=== PATIENT | male | born 1985 | race Caucasian/White ===

== ENCOUNTER 2018-09-02 09:43 | Emergency (ER) | payer SELFPAY ==
--- NOTE | 2018-09-02 10:27 | ER ---
Nurse's Notes [facility] Name: Brian Schumacher Age: 32 yrs Sex: Male : 1985 Arrival Date: 09/02/2018 Time: 09:46 Bed 8 Private MD: Diagnosis: Cellulitis of face Presentation: 09/02 09:56 Presenting complaint: Patient states: last night i started noticing the R side of my hj face is swollen this morning, it was worse, swelling around my eye, down to the L cheek area; pain is 2/10; denies tooth problems, denies skin breakdown on the area; denies F/C; denies trauma to the area; took Benadryl last night and this AM;. Transition of care: patient was not received from another setting of care. Onset of symptoms was September 02, 2018. Risk Assessment: Do you want to hurt yourself or someone else? Patient reports no desire to harm self or others. Initial Sepsis Screen: Does the patient meet any 2 criteria? No. Patient's initial sepsis screen is negative. Does the patient have a suspected source of infection? Yes:. Care prior to arrival:. 09:56 Method Of Arrival: Ambulatory 09:56 Acuity: MARTINA 4 hj Triage Assessment: 10:00 General: Appears in no apparent distress. uncomfortable, Behavior is calm, cooperative, hj appropriate for age. Pain: Complains of pain in right eye and right cheek. Historical: - Allergies: 09:59 No Known Allergies; hj - Home Meds: 09:59 None [Active]; hj - PMHx: 09:59 None; hj - PSHx: 09:59 None; hj - Immunization history:: Adult Immunizations not up to date. - Social history:: Smoking status: Patient uses tobacco products, Patient/guardian denies using alcohol, Patient/guardian denies using street drugs, The patient lives with family. - Ebola Screening: : Patient negative for fever greater than or equal to 101.5 degrees Fahrenheit, and additional compatible Ebola Virus Disease symptoms Patient denies exposure to infectious person Patient denies travel to an Ebola-affected area in the 21 days before illness onset. - Family history:: not pertinent. Screenin:00 Abuse screen: Denies threats or abuse. Denies injuries from another. Nutritional hj screening: No deficits noted. Tuberculosis screening: No symptoms or risk factors identified. Fall Risk None identified. Assessment: 10:01 General: Appears in no apparent distress. uncomfortable, Behavior is calm, cooperative, hj appropriate for age. Pain: Complains of pain in face and right cheek and right eye Pain currently is 2 out of 10 on a pain scale. Neuro: Level of Consciousness is awake, alert, obeys commands, Oriented to person, place, time, situation, Appropriate for age. Cardiovascular: Capillary refill < 3 seconds Patient's skin is warm and dry. Respiratory: Airway is patent Respiratory effort is even, unlabored, Respiratory pattern is regular, symmetrical. GI: No signs and/or symptoms were reported involving the gastrointestinal system. : No signs and/or symptoms were reported regarding the genitourinary system. EENT: Reports pain in face and right cheek. Derm: No signs and/or symptoms reported regarding the dermatologic system. Musculoskeletal: No signs and/or symptoms reported regarding the musculoskeletal system. 10:22 Reassessment: for D/C;. hj Vital Signs: 09:59 BP 144 / 104; Pulse 74; Resp 18; Temp 97.7(TE); Pulse Ox 97% on R/A; Weight 113.4 kg; hj Height 6 ft. 1 in. (185.42 cm); Pain 2/10; 10:22 BP 142 / 98; Pulse 75; Resp 18; Pulse Ox 100% on R/A; hj 10:34 BP 136 / 94; Pulse 75; Resp 18; Pulse Ox 100% on R/A; hj 09:59 Body Mass Index 32.98 (113.40 kg, 185.42 cm) ED Course: 09:46 Patient arrived in ED. rg4 09:56 Bharat Figueroa, EDITA is Primary Nurse. hj 09:58 Triage completed. hj 10:01 Arm band placed on right wrist. hj 10:01 Patient has correct armband on for positive identification. Bed in low position. Call hj light in reach. Side rails up X 1. 10:05 Titus Nina MD is Attending Physician. ma2 10:34 No provider procedures requiring assistance completed. Patient did not have IV access hj during this emergency room visit. Administered Medications: 10:28 Drug: Augmentin 875 mg Route: PO; hj 10:33 Follow up: Response: No adverse reaction hj Outcome: 10:27 Discharge ordered by . maxx 10:35 Discharged to home ambulatory. hj 10:35 Condition: stable 10:35 Discharge instructions given to patient, Instructed on discharge instructions, follow up and referral plans. medication usage, Demonstrated understanding of instructions, follow-up care, medications, Prescriptions given X 1. 10:35 Patient left the ED. Signatures: Bharat Figueroa RN RN hj Garcia, Rubi rg4 Titus Nina MD MD ma2
--- NOTE | 2018-09-02 10:28 | EDPHYS ---
Physician Documentation [facility] Name: Brian Schumacher Age: 32 yrs Sex: Male : 1985 Arrival Date: 09/02/2018 Time: 09:46 Bed 8 Private MD: ED Physician Titus Nina HPI: 09/02 10:24 This 32 yrs old Male presents to ER via Ambulatory with complaints of Facial ma2 Swelling. 10:24 The patient or guardian reports swelling, tenderness. The complaints affect the right ma2 cheek. Onset: The symptoms/episode began/occurred gradually, 1 day(s) ago. Associated signs and symptoms: The patient has no apparent associated signs or symptoms. Severity of symptoms: At their worst the symptoms were very mild. The patient has not experienced similar symptoms in the past. Historical: - Allergies: :59 No Known Allergies; hj - Home Meds: :59 None [Active]; hj - PMHx: :59 None; hj - PSHx: 09:59 None; hj - Immunization history:: Adult Immunizations not up to date. - Social history:: Smoking status: Patient uses tobacco products, Patient/guardian denies using alcohol, Patient/guardian denies using street drugs, The patient lives with family. - Ebola Screening: : Patient negative for fever greater than or equal to 101.5 degrees Fahrenheit, and additional compatible Ebola Virus Disease symptoms Patient denies exposure to infectious person Patient denies travel to an Ebola-affected area in the 21 days before illness onset. - Family history:: not pertinent. ROS: 10:24 Constitutional: Negative for fever, chills, and weight loss. ma2 10:24 ENT: Positive for area of redness on face, Negative for foreign body sensation, pulling at ears, Teeth pain tinnitus. 10:24 All other systems are negative. Exam: 10:24 Constitutional: This is a well developed, well nourished patient who is awake, alert, ma2 and in no acute distress. Eyes: Pupils equal round and reactive to light, extra-ocular motions intact. Lids and lashes normal. Conjunctiva and sclera are non-icteric and not injected. Cornea within normal limits. Periorbital areas with no swelling, redness, or edema. ENT: Nares patent. No nasal discharge, no septal abnormalities noted. Tympanic membranes are normal and external auditory canals are clear. Oropharynx with no redness, swelling, or masses, exudates, or evidence of obstruction, uvula midline. Mucous membranes moist. Neck: Trachea midline, no thyromegaly or masses palpated, and no cervical lymphadenopathy. Supple, full range of motion without nuchal rigidity, or vertebral point tenderness. No Meningismus. Chest/axilla: Normal chest wall appearance and motion. Nontender with no deformity. No lesions are appreciated. Cardiovascular: Regular rate and rhythm with a normal S1 and S2. No gallops, murmurs, or rubs. Normal PMI, no JVD. No pulse deficits. Respiratory: Lungs have equal breath sounds bilaterally, clear to auscultation and percussion. No rales, rhonchi or wheezes noted. No increased work of breathing, no retractions or nasal flaring. Abdomen/GI: Soft, non-tender, with normal bowel sounds. No distension or tympany. No guarding or rebound. No evidence of tenderness throughout. 10:24 Head/face: Exam is negative for obvious evidence of injury or deformity, abrasion(s), reagan signs, contusion, deformity, ecchymosis, erythema, hematoma, laceration(s), raccoon eyes, rash, Noted is area of redness and tenderness lateral to nose on right, periorbital puffiness, no fluctuance, eye exam wnl . Sinus tenderness, is not appreciated. Vital Signs: 09:59 BP 144 / 104; Pulse 74; Resp 18; Temp 97.7(TE); Pulse Ox 97% on R/A; Weight 113.4 kg; Height 6 ft. 1 in. (185.42 cm); Pain 2/10; 10:22 BP 142 / 98; Pulse 75; Resp 18; Pulse Ox 100% on R/A; hj 10:34 BP 136 / 94; Pulse 75; Resp 18; Pulse Ox 100% on R/A; 09:59 Body Mass Index 32.98 (113.40 kg, 185.42 cm) MDM: 10:05 Patient medically screened. ma2 10:24 Differential diagnosis: cellulitis of face vs insect bite, vs periorbital cellultitis, ma2 no orbital cellultitis. Data reviewed: vital signs, nurses notes. Counseling: I had a detailed discussion with the patient and/or guardian regarding: the historical points, exam findings, and any diagnostic results supporting the discharge/admit diagnosis, the presence of at least one elevated blood pressure reading (>120/80) during this emergency department visit, the need for outpatient follow up. Administered Medications: 10:28 Drug: Augmentin 875 mg Route: PO; hj 10:33 Follow up: Response: No adverse reaction hj Disposition: 09/02/18 10:27 Discharged to Home. Impression: Cellulitis of face. - Condition is Stable. - Discharge Instructions: Cellulitis, Adult. - Prescriptions for Augmentin 875- 125 mg Oral Tablet - take 1 tablet by ORAL route every 12 hours for 10 days; 20 tablet. - Medication Reconciliation Form, Thank You Letter, Antibiotic Education, Prescription Opioid Use form. - Follow up: Private Physician; When: Tomorrow; Reason: Continuance of care. Signatures: Bharat Figueroa RN RN hj Alzahri, Mohammad, MD MD ma2 Corrections: (The following items were deleted from the chart) 10:35 10:27 09/02/2018 10:27 Discharged to Home. Impression: Cellulitis of face. Condition is hj Stable. Forms are Medication Reconciliation Form, Thank You Letter, Antibiotic Education, Prescription Opioid Use. Follow up: Private Physician; When: Tomorrow; Reason: Continuance of care. ma2
[2018-09-02] MEDS ORDERED: AMOX/K CLAV 875 MG TAB ONE (10:43)
== END 2018-09-02 10:35 | disposition home or self-care (01) ==
LOC: ER 09:43
DX: L03.211 Cellulitis of face (principal); Z72.0 Tobacco use
CPT/HCPCS: 99283